=== PATIENT | female | born 1975 | race Caucasian/White ===

== ENCOUNTER 2016-09-27 06:32 | Day surgery (SDC) | payer OTHER ==
[2016-09-27] MEDS ORDERED: METHYLENE BLUE 1% 100 MG/10 ML VIAL ONE (07:10)
[2016-09-27] MEDS ORDERED: BUPIVACAINE 0.25% 30 ML SDV ONE (07:10)
[2016-09-27] MEDS ORDERED: LIDOCAINE 1% 5 ML SDV ONE (07:13)
[2016-09-27] MEDS ORDERED: fentaNYL 100 MCG/2 ML INJ ONE (07:51)
[2016-09-27] MEDS ORDERED: MIDAZOLAM 2 MG/2 ML VIAL ONE (07:51)
[2016-09-27] MEDS ORDERED: PROPOFOL 200 MG/20 ML VIAL ONE (07:52)
[2016-09-27] MEDS ORDERED: NEOSTIGMINE METHYLSULFATE 5 MG/5 ML SYR ONE (08:49)
[2016-09-27] MEDS ORDERED: ROCURONIUM 50 MG/5 ML VIAL ONE (08:49)
[2016-09-27] MEDS ORDERED: METOCLOPRAMIDE 10 MG/2 ML VIAL ONE (08:49)
[2016-09-27] MEDS ORDERED: GLYCOPYRROLATE 0.2 MG/1 ML VIAL ONE ×2 (08:49)
[2016-09-27] MEDS ORDERED: ONDANSETRON 4 MG/2 ML VIAL ONE (08:49)
[2016-09-27] MEDS ORDERED: KETOROLAC 30 MG/1 ML SDV ONE (08:57)
--- NOTE | 2016-09-27 15:53 | GOP ---
[f rep st] OPERATIVE REPORT DATE OF OPERATION: 09/27/2016 SURGEON: Arabella Douglas MD ANESTHESIA: General endotracheal. ANESTHESIOLOGIST: Steven Palma PREOPERATIVE DIAGNOSIS: 1. Chronic pelvic pain. 2. Dysmenorrhea, desires operative diagnosis. POSTOPERATIVE DIAGNOSIS: 1. Chronic pelvic pain. 2. Dysmenorrhea, desires operative diagnosis. 3. Plus possibility of early endometriosis. PROCEDURE PERFORMED: Diagnostic laparoscopy with biopsy of possible endometriosis and fulguration. FINDINGS: A normal-size uterus that is boggy in appearance. Her right ovary appears normal and the right fallopian tube appears to be previously transected, so it is not continuous. The posterior cul -de-sac has no lesions. The anterior cul-de-sac on the left, there are some very vesicular-looking l esions and on the left fallopian tube, there are vesicular-like lesions. They are not discolored. They are clear. Left ovary is normal, and the anterior abdominal wall is clear of disease. ESTIMATED BLOOD LOSS: Minimal. DESCRIPTION OF PROCEDURE: With informed consent signed, patient taken to operating room, placed unde r general anesthesia, placed in the low dorsal lithotomy position, prepped and draped in the usual st erile fashion. Bladder emptied with a catheter. Tenaculum placed on the anterior lip of the cervix and Alex cannula placed in the cervical os. Attention was turned to the abdomen. Incision sites were injected with 0.25% Marcaine suprapubically , in the inferior aspect of the umbilicus, and the left lower quadrant. Next, an incision was made w ith a scalpel. Veress needle placed with ease into the abdominal cavity, which was then insufflated with CO2 gas. Once an adequate pneumoperitoneum was developed, a 5 mm trocar placed in the inferior aspect of the umbilicus. Laparoscope followed, and appropriate placement and no entrance injury note d. The suprapubic trocar was placed in the same technique and the left lower quadrant trocar was sheree fab. The posterior cul-de-sac was cleared of fluid and again, evaluation of that area was negative. These vesicular lesions on the left side, on the anterior cul-de-sac, and then along the fallopian tube we re noted. One was biopsied and handed off for specimen, and then the rest were lightly fulgurated jus t above on the anterior peritoneum. On the fallopian tube, I did not fulgurate them because I did no t want to cause any scarring to that fallopian tube. Once it was felt that the pelvic area was completely evaluated and treated, abdomen desufflated of CO 2 gas. Trocars removed and 4-0 Vicryl used to close the incision sites, and the Alex cannula and ten aculum were removed. Patient placed in the supine position, awakened in the operating room, taken to the recovery room in stable condition, tolerated the procedure well. INDICATIONS FOR PROCEDURE: Patient is a 41-year-old, G 1, P 0, who is using nothing for contro l and there is underlying possibility of infertility. She has had very severe menstrual cramps ongoi ng and has not responded well to medical therapies, and desires to move forward with surgical diagnos is and treatment. COMPLICATIONS: None. /[id number]/MODL
== END 2016-09-27 10:10 | disposition home or self-care (01) ==
LOC: FSGY 06:32
PROVIDERS: ATTEND Obstetrics & Gynecology Gynecology
PROC: 0U5F4ZZ Destruction of Cul-de-sac, Percutaneous Endoscopic Approach (ICD-10-PCS; principal; 2016-09-27 08:00)
PROC: 0DBW4ZX Excision of Peritoneum, Percutaneous Endoscopic Approach, Diagnostic (ICD-10-PCS; 2016-09-27 08:00)
DX: R10.2 Pelvic and perineal pain (principal); N94.6 Dysmenorrhea, unspecified; D20.1 Benign neoplasm of soft tissue of peritoneum; F32.9 Major depressive disorder, single episode, unspecified
CPT/HCPCS: J1885; J2250; J2405; J2704; J2710; J2765; J3010; Q9968